=== PATIENT | male | born 1990 | race American Indian/Alaskan Native ===

== ENCOUNTER 2021-07-09 21:24 | Emergency (ER) | payer OTHER ==
[~2021-07-09] VITALS: Ht 180.3 cm; Wt 82.9 kg
--- OUTSIDE RECORDS SUMMARY | 2021-07-09 21:32 | XMS ---
PreManage Notification: CUATE DORADO Security Stain Dipper Events No recent Security Events currently on file CRITERIA MET - [facility] - 2 Visits in 30 Days CARE PROVIDERS There are no care providers on record at this time. Arabella has no Care Guidelines for this patient. Breanne VISIT COUNT ([address] [facility] NOTE: Visits indicate total known visits. ED/C VISIT TRACKING (12 MO.) [facility] COMPLAINT: - OPIOID WITHDRAWAL [facility] DIAGNOSES: - Drug Overdose - Opioid dependence with unspecified opioid-induced disorder - Poisoning by other opioids, accidental (unintentional), initial encounter 07[facility]16[facility]2020 22[facility] DIAGNOSES: - Laceration without foreign body, left lower leg, initial encounter - laceration INPATIENT VISIT TRACKING (12 MO.) No inpatient visits to display in this time frame [email or web address]
== END 2021-07-09 22:37 | disposition home or self-care (01) ==
LOC: ED 21:24
DX: F11.23 Opioid dependence with withdrawal (principal); Z91.010 Allergy to peanuts

== ENCOUNTER 2021-12-13 17:54 | Emergency (ER) | payer OTHER ==
[~2021-12-13] VITALS: Ht 180.3 cm; Wt 82.0 kg
[2021-12-13] MEDS ORDERED: CLONIDINE HCL0.1 MG PO (19:36)
== END 2021-12-13 19:49 | disposition home or self-care (01) ==
LOC: ED 17:54
DX: F11.20 Opioid dependence, uncomplicated (principal); F19.20 Other psychoactive substance dependence, uncomplicated; Z91.018 Allergy to other foods
CPT/HCPCS: 36415; 80048; 85025; 96374; 99284-25; J2060